=== PATIENT | male | born 1945 | race African-American/Black ===

== ENCOUNTER 2017-04-21 03:52 | Emergency (ER) | payer MEDICARE, OTHER ==
--- NOTE | ~2017-04-21 | CT4 ---
[facility] A Service of [facility] [place] RADIOLOGY TEXT RESULTS PATIENT: BREA LIU LOCATION: [facility] : 49 UNIT #: [id number] AGE: [address]: Anuj He MD SEX: M ORDER DR: [id number] [facility]. [place], [place] [address] [id number] MR#: [id number] Acc #: [id number] NAME: BREA LIU : 1945 SEX: M STUDY DATE/TIME: 04/21/2017 5:36 UNIT: DAVID ROOM: STUDY DESCRIPTION: CT Abd and Pelv Wo Cont Attending Physician: Anuj He M.D. Ordering Physician: Anuj He M.D. Primary Care Physician: Shannon Mayes M.D. MEDICAL IMAGING REPORT This report is preliminary unless electronic signature is present EXAM CT abdomen and pelvis without contrast INDICATION Left flank pain for the past week. PROCEDURE Unenhanced CT of the abdomen and pelvis. This CT exam was performed with one or more of the following radiation dose reduction techniques: Automatic exposure control, adjustment of mA and/or kV according to patient size, and iterative reconstruction. COMPARISON None. FINDINGS ABDOMEN WITHOUT CONTRAST: Partially included linear scarring or atelectasis in the lingula. The liver, spleen, adrenal glands, pancreas, and gallbladder are unremarkable. Bowel loops are nondilated. Appendix is normal. Mild left perinephric stranding. No hydronephrosis or radiodense ureteral calculus. PELVIS WITHOUT CONTRAST: No radiodense bladder calculus. No pelvic mass or fluid. Severe bilateral hip arthrosis. No aggressive appearing bone lesion. IMPRESSION 1. Mild left perinephric stranding, but no radiodense urinary system calculus or hydronephrosis. 2. Severe bilateral hip arthrosis. [facility] A Service of [facility] [place] RADIOLOGY TEXT RESULTS PATIENT: BREA LIU LOCATION: [facility] : 49 UNIT #: [id number] AGE: [address]: Anuj He MD SEX: M ORDER DR: Dictated by... Mike Arteaga M.D. THIS IS AN ELECTRONICALLY VERIFIED REPORT Mike Arteaga M.D. at 04/23/2017 9:59 PM EED/john TD: 04/21/2017 08:38 JOB #: [id number] MEDICAL IMAGING REPORT Page 1 of 1 COPY
[~2017-04-21 03:52] MED LIST: ALBUTEROL17 GM INH; ANEXSIA 7.5/3251 TA1; ANEXSIA 7.5/3251 TA1 PO; FLEXERIL10 MG PO; HYDRALAZINE HCL25 MG PO; HYDROCHLOROTHIA25 MG PO; HYDROCODONE-APA1 T43 PO; KEFLEX500 M1 PO; LOTRIMIN 1% CR30 GM EXT; METOPROLOL SUCC25 MG PO; TUSSIONEX PENN473 ML PO; VITAL-D RX TABL1 TAB PO; VITAMIN D32000 UNI1 PO; ZESTRIL10 M1 PO; ZITHROMAX1 G/PKT PO
[2017-04-21 05:47] LABS: URINE SOURCE CLEAN CATCH
[2017-04-21 05:50] LABS: URINE APPEARANCE CLEAR; URINE BILIRUBIN NEG (NEG); URINE BLOOD NEG (NEG); URINE COLOR YELLOW; URINE GLUCOSE NEG (NEG); URINE KETONE NEG (NEG); URINE LEUKOCYTE ESTERASE NEG (NEG); URINE NITRATE NEG (NEG); URINE PH 5.5 (5-8); URINE PROTEIN NEG (NEG); URINE SPECIFIC GRAVITY 1.012 (1.003-1.035)
== END 2017-04-21 06:20 | disposition home or self-care (01) ==
LOC: CED 03:52
PROVIDERS: Emergency Medicine
DX: M54.5 Low back pain (principal)
CPT/HCPCS: 74176; 81003; 99284